=== PATIENT | female | born 1940 | race Two or more races ===

== ENCOUNTER 2022-10-26 20:14 | Emergency (ER) | payer OTHER ==
[~2022-10-26] VITALS: Ht 154.9 cm; Wt 54.4 kg
[~2022-10-26 20:14] MED LIST: ABATINEX680 MG; COZAAR50 MG; GABAPENTIN300 MG; LEVOTHYROXINE25 MC2; NEURIN; ORTHO DF 3,7751 EACH; PEPCID AC20 MG; PROVASTATIN; RESTORIL30 M1 PO; ZANAFLEX2 MG
[2022-10-26] MEDS ORDERED: MOBIC7.5 MG PO (22:53)
== END 2022-10-26 23:34 | disposition home or self-care (01) ==
LOC: ER 20:14
DX: M54.9 Dorsalgia, unspecified (principal); W18.39XA Other fall on same level, initial encounter; Y93.F1 Activity, caregiving, bathing; Y92.89 Other specified places as the place of occurrence of the external cause; D05.91 Unspecified type of carcinoma in situ of right breast; I10 Essential (primary) hypertension; E78.49 Other hyperlipidemia
CPT/HCPCS: 71110; 72040; 72070; 72110; 72170; 96372; 99284; J1885